=== PATIENT | male | born 1970 | race Caucasian/White ===

== ENCOUNTER 2017-05-05 04:06 | Inpatient (IN) | payer BC, OTHER ==
[2017-05-05] MEDS: NS 1,000 ML IV ×3 (06:00→13:15)
[2017-05-05] MEDS: ONDANSETRON 4MG/2ML VIAL (J2405) IV (06:00)
[2017-05-05 06:10] LABS: BASO # 0.1 10^3/uL (0.0-0.2); BASO % 0.5 % (0.0-1.0); EOS # 0.1 10^3/uL (0.0-0.50); EOS % 0.5 % (0.0-3.0); IMMATURE GRANULOCYTE # 0.1 10^3/uL (0-0); IMMATURE GRANULOCYTE % 0.4 % (0-0); LYMPH # 1.2 10^3/uL (1.5-4.5); LYMPH % 10.7 % (24.0-44.0); MEAN CORPUSCULAR HGB CONC 33.6 g/dl (32.0-36.5); MEAN CORPUSCULAR VOLUME 89.2 fl (80.0-96.0); MONO % 8.8 % (0.0-5.0); NEUTROPHILS # 9.1 10^3/uL (1.8-7.7); NEUTROPHILS % 79.1 % (36.0-66.0); PLATELET COUNT, AUTOMATED 405 10^3/uL (150-450); RED CELL DISTRIBUTION WIDTH 13.1 % (11.5-14.5); WHITE BLOOD COUNT 11.5 10^3/uL (4.0-10.0)
[2017-05-05] MEDS: HYDROmorphone HCL 1 MG/ML SYRINGE (J1170) IV ×3 (06:12→10:15)
[2017-05-05 06:29] LABS: ANION GAP 7 MEQ/L (8-16); BLOOD UREA NITROGEN 17 MG/DL (7-18); CALCIUM LEVEL 8.7 MG/DL (8.5-10.1); CARBON DIOXIDE LEVEL 27 MEQ/L (21-32); CHLORIDE LEVEL 101 MEQ/L (98-107); CREATININE FOR GFR 1.03 MG/DL (0.70-1.30); GLOMERULAR FILTRATION RATE > 60.0 (>60); GLUCOSE, FASTING 121 MG/DL (70-105); POTASSIUM SERUM 3.9 MEQ/L (3.5-5.1); SODIUM LEVEL 135 MEQ/L (136-145)
[2017-05-05] MEDS: dexameTHASONE 20 MG/5 ML VIAL (J1100) IV (07:15)
[2017-05-05] MEDS ORDERED: GASTROGRAFIN SOLUTION 30ML (Q9963) PO (07:15)
[2017-05-05] MEDS ORDERED: GASTROGRAFIN SOLUTION 30ML (Q9963) As Ordered (07:24)
[2017-05-05] MEDS ORDERED: ISOVUE-370 76% 100ML VIAL (Q9967) As Ordered (08:33)
[2017-05-05 09:15] LABS: ALBUMIN 3.3 GM/DL (3.2-5.2); ALBUMIN/GLOBULIN RATIO 0.66 (1.00-1.93); ALKALINE PHOSPHATASE 59 U/L (45-117); ALT/SGPT 27 U/L (12-78); AST/SGOT 12 U/L (7-37); BILIRUBIN,DIRECT 0.1 MG/DL (0.0-0.2); BILIRUBIN,TOTAL 0.5 MG/DL (0.2-1.0); TOTAL PROTEIN 8.3 GM/DL (6.4-8.2)
[2017-05-05] MEDS: metroNIDAZOLE 500 MG in APPROPRIATE DILUENT 1 EA IV ×2 (10:00→17:59)
[2017-05-05] MEDS: CIPROFLOXACIN 400 MG in APPROPRIATE DILUENT 1 EA IV ×2 (10:00→21:49)
[2017-05-05] MEDS ORDERED: ACETAMINOPHEN TAB 650MG DOSE (2X325MG) PO (11:15)
[2017-05-05] MEDS ORDERED: ONDANSETRON 4MG/2ML VIAL (J2405) IV (11:15)
[2017-05-05] MEDS: PERCOCET 5MG/325MG TAB PO ×3 (14:07→21:50)
[2017-05-05] MEDS: methylPREDNISolone INJ 40 MG/1 ML VIAL (J2920) IV (16:00)
[2017-05-06] MEDS: methylPREDNISolone INJ 40 MG/1 ML VIAL (J2920) IV ×2 (00:12→09:14)
[2017-05-06] MEDS: NS 1,000 ML IV ×2 (02:03→13:07)
[2017-05-06] MEDS: metroNIDAZOLE 500 MG in APPROPRIATE DILUENT 1 EA IV ×3 (02:03→21:39)
[2017-05-06 06:07] LABS: MEAN CORPUSCULAR HEMOGLOBIN 29.4 pg (27.0-33.0); MEAN CORPUSCULAR VOLUME 89.3 fl (80.0-96.0); PLATELET COUNT, AUTOMATED 362 10^3/uL (150-450); RED CELL DISTRIBUTION WIDTH 13.2 % (11.5-14.5); WHITE BLOOD COUNT 9.1 10^3/uL (4.0-10.0)
[2017-05-06 06:31] LABS: ANION GAP 7 MEQ/L (8-16); BLOOD UREA NITROGEN 10 MG/DL (7-18); CALCIUM LEVEL 8.5 MG/DL (8.5-10.1); CARBON DIOXIDE LEVEL 26 MEQ/L (21-32); CHLORIDE LEVEL 106 MEQ/L (98-107); CREATININE FOR GFR 0.75 MG/DL (0.70-1.30); GLOMERULAR FILTRATION RATE > 60.0 (>60); GLUCOSE, FASTING 165 MG/DL (70-105); MAGNESIUM LEVEL 2.5 MG/DL (1.8-2.4); POTASSIUM SERUM 4.2 MEQ/L (3.5-5.1); SODIUM LEVEL 139 MEQ/L (136-145)
[2017-05-06] MEDS: CIPROFLOXACIN 400 MG in APPROPRIATE DILUENT 1 EA IV ×2 (09:14→22:48)
[2017-05-06] MEDS: PERCOCET 5MG/325MG TAB PO ×2 (11:25→21:40)
[2017-05-06] MEDS: diphenhydrAMINE 25 MG CAP PO ×2 (12:08→23:38)
[2017-05-06] MEDS: predniSONE 20 MG TAB PO (15:20)
[2017-05-07] MEDS: NS 1,000 ML IV (05:45)
[2017-05-07] MEDS: CIPROFLOXACIN 400 MG in APPROPRIATE DILUENT 1 EA IV (06:03)
[2017-05-07 06:29] LABS: MEAN CORPUSCULAR HEMOGLOBIN 29.5 pg (27.0-33.0); MEAN CORPUSCULAR HGB CONC 32.4 g/dl (32.0-36.5); PLATELET COUNT, AUTOMATED 365 10^3/uL (150-450); RED CELL DISTRIBUTION WIDTH 13.2 % (11.5-14.5); WHITE BLOOD COUNT 9.6 10^3/uL (4.0-10.0)
[2017-05-07 06:45] LABS: ANION GAP 6 MEQ/L (8-16); BLOOD UREA NITROGEN 16 MG/DL (7-18); CARBON DIOXIDE LEVEL 26 MEQ/L (21-32); CHLORIDE LEVEL 107 MEQ/L (98-107); CREATININE FOR GFR 0.79 MG/DL (0.70-1.30); GLOMERULAR FILTRATION RATE > 60.0 (>60); GLUCOSE, FASTING 109 MG/DL (70-105); MAGNESIUM LEVEL 2.5 MG/DL (1.8-2.4); POTASSIUM SERUM 3.9 MEQ/L (3.5-5.1); SODIUM LEVEL 139 MEQ/L (136-145)
[2017-05-07 07:04] LABS: ERYTHROCYTE SEDIMENTATION RATE 54 mm/hr (0-15)
[2017-05-07] MEDS: metroNIDAZOLE 500 MG in APPROPRIATE DILUENT 1 EA IV (07:27)
[2017-05-07] MEDS: AUGMENTIN 875 MG TAB PO ×2 (08:47→20:16)
[2017-05-07] MEDS: predniSONE 20 MG TAB PO (08:47)
[2017-05-07] MEDS: DOCUSATE SODIUM 100 MG CAP PO ×2 (11:33→20:16)
[2017-05-07] MEDS ORDERED: CIPROFLOXACIN 400 MG in APPROPRIATE DILUENT 1 EA IV (18:00)
[2017-05-08 06:24] LABS: MEAN CORPUSCULAR HEMOGLOBIN 29.2 pg (27.0-33.0); MEAN CORPUSCULAR VOLUME 88.5 fl (80.0-96.0); PLATELET COUNT, AUTOMATED 409 10^3/uL (150-450); RED CELL DISTRIBUTION WIDTH 13.1 % (11.5-14.5); WHITE BLOOD COUNT 10.9 10^3/uL (4.0-10.0)
[2017-05-08 06:35] LABS: ANION GAP 7 MEQ/L (8-16); BLOOD UREA NITROGEN 20 MG/DL (7-18); CALCIUM LEVEL 8.4 MG/DL (8.5-10.1); CARBON DIOXIDE LEVEL 27 MEQ/L (21-32); CHLORIDE LEVEL 105 MEQ/L (98-107); CREATININE FOR GFR 0.92 MG/DL (0.70-1.30); GLOMERULAR FILTRATION RATE > 60.0 (>60); GLUCOSE, FASTING 89 MG/DL (70-105); MAGNESIUM LEVEL 2.6 MG/DL (1.8-2.4); SODIUM LEVEL 139 MEQ/L (136-145)
[2017-05-08] MEDS: AUGMENTIN 875 MG TAB PO (09:15)
[2017-05-08] MEDS: predniSONE 20 MG TAB PO (09:15)
== END 2017-05-08 12:14 | disposition home or self-care (01) | DRG 245 ==
LOC: M ED 04:06 → M ED INP 11:09 → M MSPAV 13:05
DX: K50.911 Crohn's disease, unspecified, with rectal bleeding (principal); D62 Acute posthemorrhagic anemia; I10 Essential (primary) hypertension; E66.01 Morbid (severe) obesity due to excess calories; Z68.41 Body mass index [BMI] 40.0-44.9, adult; Z87.891 Personal history of nicotine dependence; Z88.5 Allergy status to narcotic agent; Z79.899 Other long term (current) drug therapy

== ENCOUNTER 2017-05-11 16:06 | Inpatient (IN) | payer BC ==
[2017-05-11] MEDS: PERCOCET 5MG/325MG TAB PO (18:11)
[2017-05-11 19:49] LABS: BASO % 0.2 % (0.0-1.0); HEMATOCRIT 42.7 % (42.0-52.0); HEMOGLOBIN 14.2 g/dl (14.0-18.0); IMMATURE GRANULOCYTE # 0.2 10^3/uL (0-0); IMMATURE GRANULOCYTE % 0.8 % (0-0); LYMPH # 1.3 10^3/uL (1.5-4.5); LYMPH % 6.6 % (24.0-44.0); MEAN CORPUSCULAR HEMOGLOBIN 29.2 pg (27.0-33.0); MEAN CORPUSCULAR HGB CONC 33.3 g/dl (32.0-36.5); MEAN CORPUSCULAR VOLUME 87.9 fl (80.0-96.0); MONO # 0.9 10^3/uL (0.0-0.8); MONO % 4.6 % (0.0-5.0); NEUTROPHILS # 16.8 10^3/uL (1.8-7.7); NEUTROPHILS % 87.8 % (36.0-66.0); PLATELET COUNT, AUTOMATED 480 10^3/uL (150-450); RED BLOOD COUNT 4.86 10^6/uL (4.30-6.10); RED CELL DISTRIBUTION WIDTH 13.3 % (11.5-14.5); WHITE BLOOD COUNT 19.2 10^3/uL (4.0-10.0)
[2017-05-11 20:08] LABS: ERYTHROCYTE SEDIMENTATION RATE 29 mm/hr (0-15); URIC ACID 4.7 MG/DL (3.5-7.2)
[2017-05-11 20:09] LABS: ANION GAP 9 MEQ/L (8-16); BLOOD UREA NITROGEN 18 MG/DL (7-18); CALCIUM LEVEL 9.3 MG/DL (8.5-10.1); CARBON DIOXIDE LEVEL 26 MEQ/L (21-32); CHLORIDE LEVEL 101 MEQ/L (98-107); CREATININE FOR GFR 0.94 MG/DL (0.70-1.30); GLOMERULAR FILTRATION RATE > 60.0 (>60); GLUCOSE, FASTING 129 MG/DL (70-105); POTASSIUM SERUM 4.7 MEQ/L (3.5-5.1); SODIUM LEVEL 136 MEQ/L (136-145)
[2017-05-11 21:30] LABS: RBC BODY FLUID < 2 10^3/uL (<2)
[2017-05-11 21:37] LABS: APPEARANCE, BODY FLUID CLOUDY (CLEAR); BF DIFF IF INDICATED? YES (NO); BF MONONUCLEAR CELL % 11.5 % (0-0); BF POLYMORPHONUCLEAR CELL % 88.5 % (0-0); SOURCE, BODY FLUID LFT KNEE; SYNOVIAL FLUID COLOR PALE YELLOW (YELLOW); WBC BODY FLUID 20590 /uL (0-10)
[2017-05-11 21:38] LABS: CRYSTALS, BODY FLUID NONE SEEN (NONE SEEN); SOURCE, BODY FLUID CRYSTALS LFT KNEE
[2017-05-11 21:54] LABS: SOURCE, BODY FLUID GLUCOSE LFT KNEE; SOURCE, BODY FLUID URIC ACID LFT KNEE; URIC ACID, BODY FLUID 5.6 MG/DL (NOT ESTABLISHED)
[2017-05-11] MEDS: KETOROLAC 30 MG/ML VIAL (J1885) IV (22:17)
[2017-05-11] MEDS: VANCOMYCIN HCL 1,000 MG, VIAL MATE ADAPTER 1 EACH in D5W 250 ML IV (23:33)
[2017-05-11 23:38] LABS: LACTIC ACID SEPSIS PROTOCOL 0.7 MMOL/L (0.4-2.0)
[2017-05-12] MEDS: HYDROmorphone HCL 1 MG/ML SYRINGE (J1170) IV (01:44)
[2017-05-12] MEDS: PIPERACILLIN/TAZOBACTAM SOD 3.375 GM in APPROPRIATE DILUENT 1 EA IV ×4 (01:45→19:58)
[2017-05-12] MEDS: NS 1,000 ML IV ×3 (01:45→19:08)
[2017-05-12] MEDS: VANCOMYCIN HCL 1,000 MG, VIAL MATE ADAPTER 1 EACH in D5W 250 ML IV ×4 (05:16→23:17)
[2017-05-12 06:55] LABS: HEMATOCRIT 36.7 % (42.0-52.0); MEAN CORPUSCULAR HEMOGLOBIN 29.5 pg (27.0-33.0); MEAN CORPUSCULAR HGB CONC 32.7 g/dl (32.0-36.5); MEAN CORPUSCULAR VOLUME 90.2 fl (80.0-96.0); RED BLOOD COUNT 4.07 10^6/uL (4.30-6.10); RED CELL DISTRIBUTION WIDTH 13.3 % (11.5-14.5); WHITE BLOOD COUNT 14.4 10^3/uL (4.0-10.0)
[2017-05-12 06:58] LABS: PLATELET COUNT, AUTOMATED 377 10^3/uL (150-450)
[2017-05-12 07:22] LABS: ANION GAP 7 MEQ/L (8-16); BLOOD UREA NITROGEN 14 MG/DL (7-18); CALCIUM LEVEL 8.3 MG/DL (8.5-10.1); CARBON DIOXIDE LEVEL 30 MEQ/L (21-32); CHLORIDE LEVEL 102 MEQ/L (98-107); GLOMERULAR FILTRATION RATE > 60.0 (>60); GLUCOSE, FASTING 158 MG/DL (70-105); POTASSIUM SERUM 4.4 MEQ/L (3.5-5.1); SODIUM LEVEL 139 MEQ/L (136-145)
[2017-05-12] MEDS: methylPREDNISolone INJ 125 MG/2 ML VIAL (J2930) IV ×3 (07:48→19:08)
[2017-05-12] MEDS: MESALAMINE 400 MG CAPSULE DELAYED RELEASE (DELZICOL) PO ×4 (08:44→21:18)
[2017-05-12] MEDS: BUDESONIDE EC 3 MG CAP (ENTOCORT EC) PO (08:44)
[2017-05-12] MEDS: PANTOPRAZOLE 40MG TAB (PROTONIX) PO (08:44)
[2017-05-12] MEDS: SENOKOT S TAB PO ×2 (08:44→21:18)
[2017-05-12] MEDS: PERCOCET 5MG/325MG TAB PO ×3 (08:47→21:19)
[2017-05-12] MEDS ORDERED: predniSONE 20 MG TAB PO (09:00)
[2017-05-12 20:20] LABS: VANCOMYCIN LEVEL TROUGH 7.8 UG/ML (10.0-20.0)
[2017-05-12] MEDS: ENOXAPARIN 40 MG/0.4 ML SYRINGE (J1650) SC (21:00)
[2017-05-13] MEDS: NS 1,000 ML IV ×3 (01:30→16:37)
[2017-05-13] MEDS: methylPREDNISolone INJ 125 MG/2 ML VIAL (J2930) IV ×2 (01:30→06:47)
[2017-05-13] MEDS: PIPERACILLIN/TAZOBACTAM SOD 3.375 GM in APPROPRIATE DILUENT 1 EA IV ×2 (01:31→08:03)
[2017-05-13] MEDS: VANCOMYCIN HCL 1,000 MG, VIAL MATE ADAPTER 1 EACH in D5W 250 ML IV ×3 (05:09→21:56)
[2017-05-13 07:13] LABS: HEMATOCRIT 37.2 % (42.0-52.0); HEMOGLOBIN 12.3 g/dl (14.0-18.0); MEAN CORPUSCULAR HGB CONC 33.1 g/dl (32.0-36.5); MEAN CORPUSCULAR VOLUME 87.7 fl (80.0-96.0); PLATELET COUNT, AUTOMATED 416 10^3/uL (150-450); RED BLOOD COUNT 4.24 10^6/uL (4.30-6.10); RED CELL DISTRIBUTION WIDTH 13.2 % (11.5-14.5); WHITE BLOOD COUNT 18.5 10^3/uL (4.0-10.0)
[2017-05-13 07:35] LABS: ANION GAP 6 MEQ/L (8-16); BLOOD UREA NITROGEN 13 MG/DL (7-18); CALCIUM LEVEL 8.8 MG/DL (8.5-10.1); CARBON DIOXIDE LEVEL 28 MEQ/L (21-32); CHLORIDE LEVEL 104 MEQ/L (98-107); CREATININE FOR GFR 0.83 MG/DL (0.70-1.30); GLOMERULAR FILTRATION RATE > 60.0 (>60); GLUCOSE, FASTING 189 MG/DL (70-105); POTASSIUM SERUM 3.8 MEQ/L (3.5-5.1); SODIUM LEVEL 138 MEQ/L (136-145)
[2017-05-13] MEDS: BUDESONIDE EC 3 MG CAP (ENTOCORT EC) PO (08:02)
[2017-05-13] MEDS: MESALAMINE 400 MG CAPSULE DELAYED RELEASE (DELZICOL) PO ×4 (08:03→21:58)
[2017-05-13] MEDS: PANTOPRAZOLE 40MG TAB (PROTONIX) PO (08:03)
[2017-05-13] MEDS: SENOKOT S TAB PO ×2 (08:03→21:00)
[2017-05-13] MEDS: predniSONE 20 MG TAB PO ×2 (09:00→21:57)
[2017-05-13 12:18] LABS: VANCOMYCIN LEVEL TROUGH 13.2 UG/ML (10.0-20.0)
[2017-05-13] MEDS: PERCOCET 5MG/325MG TAB PO ×2 (13:57→21:58)
[2017-05-13] MEDS: ENOXAPARIN 40 MG/0.4 ML SYRINGE (J1650) SC (21:00)
[2017-05-14] MEDS: NS 1,000 ML IV (01:45)
[2017-05-14] MEDS: VANCOMYCIN HCL 1,000 MG, VIAL MATE ADAPTER 1 EACH in D5W 250 ML IV (05:58)
[2017-05-14 07:51] LABS: HEMATOCRIT 38.7 % (42.0-52.0); HEMOGLOBIN 12.5 g/dl (14.0-18.0); MEAN CORPUSCULAR HEMOGLOBIN 29.4 pg (27.0-33.0); MEAN CORPUSCULAR HGB CONC 32.3 g/dl (32.0-36.5); MEAN CORPUSCULAR VOLUME 91.1 fl (80.0-96.0); PLATELET COUNT, AUTOMATED 458 10^3/uL (150-450); RED BLOOD COUNT 4.25 10^6/uL (4.30-6.10); RED CELL DISTRIBUTION WIDTH 13.6 % (11.5-14.5); WHITE BLOOD COUNT 15.2 10^3/uL (4.0-10.0)
[2017-05-14 08:14] LABS: ANION GAP 7 MEQ/L (8-16); BLOOD UREA NITROGEN 12 MG/DL (7-18); C REACTIVE PROTEIN QUANTITATIV 3.99 MG/DL (0.00-0.30); CALCIUM LEVEL 8.5 MG/DL (8.5-10.1); CARBON DIOXIDE LEVEL 30 MEQ/L (21-32); CHLORIDE LEVEL 103 MEQ/L (98-107); CREATININE FOR GFR 0.82 MG/DL (0.70-1.30); GLOMERULAR FILTRATION RATE > 60.0 (>60); GLUCOSE, FASTING 163 MG/DL (70-105); POTASSIUM SERUM 3.6 MEQ/L (3.5-5.1); SODIUM LEVEL 140 MEQ/L (136-145)
[2017-05-14 08:29] LABS: ERYTHROCYTE SEDIMENTATION RATE 45 mm/hr (0-15)
[2017-05-14] MEDS: predniSONE 20 MG TAB PO (08:32)
[2017-05-14] MEDS: MESALAMINE 400 MG CAPSULE DELAYED RELEASE (DELZICOL) PO (08:32)
[2017-05-14] MEDS: BUDESONIDE EC 3 MG CAP (ENTOCORT EC) PO (08:33)
[2017-05-14] MEDS: SENOKOT S TAB PO (08:33)
[2017-05-14] MEDS: PANTOPRAZOLE 40MG TAB (PROTONIX) PO (08:33)
== END 2017-05-14 10:40 | disposition home or self-care (01) | DRG 351 ==
LOC: M ED INP 05-12 00:16 → M PED 05-12 02:45 → M ED 16:06
DX: M25.462 Effusion, left knee (principal); K50.90 Crohn's disease, unspecified, without complications; E66.01 Morbid (severe) obesity due to excess calories; Z79.52 Long term (current) use of systemic steroids; Z88.5 Allergy status to narcotic agent; Z79.891 Long term (current) use of opiate analgesic; Z87.891 Personal history of nicotine dependence

== ENCOUNTER 2018-05-03 16:02 | Emergency (ER) | payer BC ==
[~2018-05-03] VITALS: Ht 170.2 cm; Wt 113.6 kg
[2018-05-03 16:02] VITALS: BP 142/84
[~2018-05-03 16:02] MED LIST: /ONDA4TA; /PANT40TA; AMOX875T2 PO; AUGM875T28 PO; BACITAB PO; BUDE3CAP PO; CIPR-249 PO; CIPR250T3; CIPR500T19; DOCU8.6T PO; EUCECRE3 TOP; FLAG500T; FLAG500T PO; FLUC100T PO; HUMI40KI2 SC; LIDO2GEL26 TOP; MESA1.2T PO; MESA4KIT PR; MULTTAB63 PO; NEOSSOL; NEUR600T PO; NO HOME MEDICATIONS; PENT500C PO; PERC5TAB8; PERC7.5T11 PO; PERCOCET PO; PRED10TA PO; PRED10TA2; PRED20TA; PRED20TA PO; QUES4POW PO; SENO8.6T10 PO; TRAM50TA2; TYLE325T5 PO; VITA100087 PO; VITA500T PO; XANA0.25; ZINC220C3 PO
[2018-05-03] MEDS ORDERED: SENN18TA PO (16:30)
[2018-05-03] MEDS ORDERED: VITA500C24 PO (16:30)
[2018-05-03] MEDS ORDERED: CIPR500T39 PO (16:30)
[2018-05-03] MEDS ORDERED: METR1TAB66 PO (16:30)
[2018-05-03] MEDS ORDERED: MESA24CASA PO (16:30)
[2018-05-03] MEDS ORDERED: MULTCAP PO (16:30)
[2018-05-03] MEDS ORDERED: DOCU100C16 PO (16:30)
[2018-05-03] MEDS ORDERED: ZINC220CA PO (16:30)
[2018-05-03] MEDS ORDERED: OXYC-517 PO (16:30)
--- NOTE | 2018-05-03 18:13 | REPVR ---
EXAM: US Right Duplex Lower Extremity Veins, Limited EXAM DATE/TIME: 05/03/2018 6:07 PM CLINICAL HISTORY: 48 years old, male; Signs and symptoms; Swelling (edema) of limb; Lower extremity, right; Additional info: Knee swelling, pain, recent surgery TECHNIQUE: Real-time Duplex ultrasound of the Right Lower Extremity with 2-D romeo scale, color Doppler flow and spectral waveform analysis. Limited exam was focused on the right lower extremity veins. COMPARISON: No relevant prior studies available. FINDINGS: Right deep veins: Unremarkable. The common femoral, femoral and popliteal veins are patent without thrombus. Normal compressibility, augmentation response and Doppler waveforms. Right superficial veins: Unremarkable. Saphenofemoral junction is patent without thrombus. Soft tissues: Unremarkable. IMPRESSION: No acute findings. No evidence of deep vein thrombosis. Electronically signed by: Elias Mackenzie On 05/03/2018 18:13:15 PM
== END 2018-05-03 18:18 | disposition left against medical advice (07) ==
LOC: M ED 16:02
DX: K91.89 Other postprocedural complications and disorders of digestive system (principal); M79.89 Other specified soft tissue disorders; K50.919 Crohn's disease, unspecified, with unspecified complications; Z79.899 Other long term (current) drug therapy; Z88.5 Allergy status to narcotic agent; Z91.018 Allergy to other foods; Z53.21 Procedure and treatment not carried out due to patient leaving prior to being seen by health care provider